=== PATIENT | male | born 1995 | race Caucasian/White ===

== ENCOUNTER → 2018-11-22 | Outpatient (CLI) | payer OTHER, SELFPAY ==
[2018-07-12 09:21] VITALS: BMI 17.6
[2018-12-02 03:06] LABS: Alternaria alternata 0.16 kU/L (Class 0/I); Aspergillus fumigatus 0.54 kU/L (Class I); Bahia Grass 2.74 kU/L (Class III); Bermuda Grass 0.94 kU/L (Class II); Bluegrass, Kentucky 7.59 kU/L (Class IV); Cat Hair/Dander, Standard 0.15 kU/L (Class 0/I); Cedar, Mountain 0.92 kU/L (Class II); Cladosporium herbarum <0.10 kU/L (Class 0); Cockroach, American <0.10 kU/L (Class 0); D farinae Mite 0.12 kU/L (Class 0/I); D pteronyssinus 0.11 kU/L (Class 0/I); Dog Epithelia <0.10 kU/L (Class 0); Elm, American White 2.76 kU/L (Class III); Johnson Grass 2.38 kU/L (Class III); Maple/Box Elder 1.32 kU/L (Class II); Mucor racemosus <0.10 kU/L (Class 0); Mugwort 0.74 kU/L (Class II); Mulberry, White 0.19 kU/L (Class 0/I); Penicillium chrysogen <0.10 kU/L (Class 0); Pigweed, Rough 1.05 kU/L (Class II); Plantain, English 2.08 kU/L (Class III); Ragweed, Short/Common 1.95 kU/L (Class III); Sheep Sorrel(Dock) 0.81 kU/L (Class II); Stemphylium herbarum 0.26 kU/L (Class 0/I); Sweet Gum 9.94 kU/L (Class IV); Sycamore, American 2.19 kU/L (Class III)
[2018-12-02 11:17] LABS: Nettle 0.47 kU/L (Class I)
== END | disposition home or self-care (01) ==
LOC: MFPLAB 09:39
PROVIDERS: Family Provider Family Medicine; PCP Family Medicine; Referring Provider Family Medicine; Visit Provider Family Medicine
DX: J30.2 Other seasonal allergic rhinitis (principal)
CPT/HCPCS: 36415; 86003

== ENCOUNTER → 2019-09-18 | Outpatient (CLI) | payer OTHER, SELFPAY ==
[2018-07-12 09:21] VITALS: BMI 17.6
--- NOTE | 2019-09-18 | MUS_PTH ---
PATIENT: DARIO SALMERON LOC: [facility] U#:[id number] AGE/SX: 24/M ROOM: RE09/18/[address]: Dr. Wolfgang Holman MD : [id number] BED: DIS: 09/18/2019 SPEC #: [id number] RECD: 09/18/19 10:06 STATUS: JELENA GONZALO #: [id number] JUAN: 09/18/19 00:[address]: Wolfgang Holman DEPT: SURGICAL PATHOLOGY RECD BY: Rojas Jacques ENTERED: 09/19/19 10:08 SP TYPE: MUSCLE BX OTHR DR: Dr. True Ryan MD Tissues: MUSCLE OF.. Procedures: Surgery Specimen Level IV HEADER OPERATION: Excision mucocele left lower lip PRE-OP DIAGNOSIS: Mucocele left lower lip TISSUE SUBMITTED: Mucocele left lower lip MICROSCOPIC DIAGNOSIS Lesion of left lower lip, excision: Mucocele. Squamous mucosal membrane with no significant pathologic change. Salivary gland tissue with minimal chronic inflammation. AM:kaitlin 09/22/19 MICROSCOPIC DESCRIPTION Slides are reviewed. GROSS DESCRIPTION Received in fixative is one container labeled with the patient's name and designated mucocele left lower lip. The specimen consists of a piece of whyte mucosal tissue measuring 1.5 x 1 x 0.5 cm. The specimen is bisected and reveals a cyst filled with mucoid material. The entire specimen is submitted in one cassette. / SJ:kaitlin 09/19/19 TC:1 CPT: 27425
== END | disposition home or self-care (01) ==
LOC: LABSPEC 15:54
PROVIDERS: PCP Family Medicine; Referring Provider Otolaryngology; Visit Provider Otolaryngology
DX: K11.6 Mucocele of salivary gland (principal)
CPT/HCPCS: 88305